=== PATIENT | male | born 1955 | race Caucasian/White ===

== ENCOUNTER 2017-11-27 16:06 | Emergency (ER) | payer OTHER ==
[~2017-11-27] VITALS: Ht 172.7 cm; Wt 99.3 kg
[2017-11-27] MEDS ORDERED: NEURONTIN 300300 M1 PO (17:35)
[2017-11-27] MEDS ORDERED: LISINOPRIL20 MG PO (17:36)
[2017-11-27] MEDS ORDERED: METFORMIN HCL500 MG PO (17:36)
[2017-11-27] MEDS ORDERED: NORVASC10 MG PO (17:37)
[2017-11-27] MEDS ORDERED: ALLOPURINOL 10100 M1 PO (17:37)
[2017-11-27] MEDS ORDERED: SYNTHROID50 MCG PO (17:37)
[2017-11-27] MEDS ORDERED: ODOR FREE GARL1 EAC1 PO (17:37)
[2017-11-27] MEDS ORDERED: GLIPIZIDE 10 MG10 MG PO (17:37)
[2017-11-27] MEDS ORDERED: IBUPROFEN 800800 M1 PO (17:38)
[2017-11-27] MEDS ORDERED: ASPIR 8181 MG PO (17:38)
[2017-11-27] MEDS ORDERED: EPIPEN0.3 MG/0.1 INJECTION (19:42)
[2017-11-27] MEDS ORDERED: PREDNISONE 20 M20 MG PO (19:42)
[2017-11-27 20:44] VITALS: BP 116/67
== END 2017-11-27 20:44 | disposition home or self-care (01) ==
LOC: ER 16:06
DX: T88.6XXA Anaphylactic reaction due to adverse effect of correct drug or medicament properly administered, initial encounter (principal); T40.4X5A Adverse effect of other synthetic narcotics, initial encounter; Y92.89 Other specified places as the place of occurrence of the external cause; Z88.5 Allergy status to narcotic agent